=== PATIENT | male | born 1990 | race Two or more races ===

== ENCOUNTER 2016-04-22 18:00 | Emergency (ER) | payer OTHER ==
[~2016-04-22] VITALS: Ht 175.3 cm; Wt 95.3 kg
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
[2016-04-22 18:47] VITALS: BP 120/80
== END 2016-04-22 18:40 ==
LOC: EDBD 18:00 → EMR 18:26
DX: Z02.89 Encounter for other administrative examinations (principal); S70.12XA Contusion of left thigh, initial encounter; B19.20 Unspecified viral hepatitis C without hepatic coma; V13.4XXA Pedal cycle driver injured in collision with car, pick-up truck or van in traffic accident, initial encounter; Y92.410 Unspecified street and highway as the place of occurrence of the external cause; Y99.8 Other external cause status
CPT/HCPCS: 99282